=== PATIENT | female | born 1970 | race American Indian/Alaskan Native ===

== ENCOUNTER 2017-02-20 06:14 | Day surgery (SDC) | payer OTHER ==
[2017-02-20] MEDS ORDERED: PEPCID PO NR ×2 (07:00→08:00)
[2017-02-20] MEDS ORDERED: NACL 0.9% 1000 ML 1,000 ML IV SCH (07:00)
[2017-02-20] MEDS ORDERED: MORPHINE IV PRN (07:53)
[2017-02-20] MEDS ORDERED: ZOFRAN IV PRN (07:53)
--- NOTE | 2017-02-20 07:53 | Anesthesia Day of Surgery ---
Anesthesia Day of Surgery - Day of Surgery Patient Examined: Yes Patient is NPO: Yes Beta Blockers: No Papa's Test: N/A
--- NOTE | 2017-02-20 07:59 | Anesthesia Consultation ---
Anesthesia Consult and Med Hx Date of service: 02/20/17 - Airway Anesthetic Teeth Evaluation: Good ROM Head & Neck: Adequate Mental/Hyoid Distance: Adequate Mallampati Class: Class III Intubation Access Assessment: Possibly Difficult - Pulmonary Exam CTA: Yes - Cardiac Exam Cardiac Exam: RRR - Pre-Operative Health Status ASA Pre-Surgery Classification: ASA3 Proposed Anesthetic Plan: General, MAC - Pulmonary Hx Smoking: No Hx Asthma: No - Cardiovascular System Hx Hypertension: No - Central Nervous System Hx Seizures: No Hx Psychiatric Problems: No - Endocrine Hx Insulin Dependent Diabetes: No Hx Non-Insulin Dependent Diabetes: No - Other Systems Hx Alcohol Use: Yes (OCCAS) Hx Substance Use: No Hx Cancer: No Hx Obesity: Yes (morbid, BMI > 40)
[2017-02-20] MEDS ORDERED: ANCEF/STERILE WATER 2 GM/20 ML IV NR (08:00)
[2017-02-20] MEDS ORDERED: XYLOCAINE 1% 20 mL ONE ×2 (08:14→12:08)
--- NOTE | 2017-02-20 09:41 | Procedure Note ---
Date of procedure: 02/20/17 Pre-op diagnosis: rt.breast lesion Post-op diagnosis: same Procedure: needle loc Findings: n/a Anesthesia: local Surgeon: AYLEEN CARLSON Estimated blood loss: none Pathology: none Specimen disposition: other Condition: stable (surgery)
--- NOTE | 2017-02-20 09:42 | Mammography Report ---
Right breast needle localization: Patient presents with a biopsy clip in the superolateral breast. A lateral approach was utilized using mammographic grid technique. The skin was cleansed and 1% lidocaine used for local anesthesia. A 7.5 cm Servin needle was introduced with its position confirmed by mammography. A wire was introduced with removal of the needle and followup mammographic confirmation of location. No complications are encountered.
[2017-02-20] MEDS ORDERED: MARCAINE 0.25% INFILTRATI ONE ×2 (12:08→12:25)
[2017-02-20] MEDS ORDERED: XYLOCAINE 1% 20 mL INFILTRATI ONE (12:25)
--- NOTE | 2017-02-20 13:15 | Mammography Report ---
Operative surgical specimen: Single tissue specimen from the right breast is submitted which includes the localizing wire and targeted clip.
--- NOTE | 2017-02-20 13:35 | Short Stay Summary ---
Short Stay Documentation Date of service: 02/20/17 - History H&P: obtained from office - Allergies and Medications Current Medications: Allergies No Known Allergies Allergy (Verified 02/14/17 15:48) Home Medications Medication Instructions Recorded Confirmed Last Taken Type Fluconazole [Diflucan TAB] 150 mg PO ONCE #1 tablet 02/20/17 Unknown Rx HYDROcodone/APAP 5-325 [[place] 1 each PO Q6HR PRN #30 tablet 02/20/17 Unknown Rx 5/325] Ibuprofen [Ibuprofen Ib] 400 mg PO QDAY 02/20/17 02/20/17 02/19/17 21:00 History Active Medications Sodium Chloride (Nacl 0.9% 1000 Ml) 1,000 mls @ 75 mls/hr IV DIRECT TANISHA Last Admin: 02/20/17 09:12 Dose: 75 mls/hr - Brief post op/procedure progress note Date of procedure: 02/20/17 Pre-op diagnosis: Right breast ADH Post-op diagnosis: same Procedure: Right needle localization excisional biopsy Anesthesia: GETA Findings: Wire and clip present within radiograph specimen Surgeon: LELAND ALLISON Estimated blood loss: other (50 cc) Pathology: list (right needle localization excisional biopsy) Specimen disposition: to lab Condition: stable - Disposition Condition at discharge: Good Disposition: DC- TO HOME OR SELFCARE Short Stay Discharge Plan Activity: other (no heavy lifting) Diet: regular Wound: other (keep incision clean and dry; may shower in 24 hours; no baths, pools or lakes; do not rub or scrub incision) Follow up with: REBECA MCKEON MD [Primary Care Provider] - 7 Days LELAND ALLISON MD [Staff Physician] - 7 Days Prescriptions: Fluconazole [Diflucan TAB] 150 mg PO ONCE #1 tablet HYDROcodone/APAP 5-325 [[place] 5/325] 1 each PO Q6HR PRN #30 tablet PRN Reason: Pain
--- NOTE | 2017-02-20 13:43 | Operative Report ---
Operative Report Operative Report: Date of Service: February 20, 2017 Preoperative diagnosis: Right breast ADH of the upper outer quadrant Postoperative diagnosis: Same Procedure: Right breast needle localization excisional biopsy of upper outer quadrant Surgeon: Gayatri Hood MD Anesthesia: General Findings: Wire and clip present within radiograph specimen Complications: None EBL: 50 cc Disposition: PACU in good condition Indications for operative procedure: This is a 46-year-old lady with recent right breast needle core biopsy with findings of ADH. Recommendations were to proceed with an excisional biopsy to rule out malignancy. Patient wished to proceed with the above procedure. Procedure in detail: Radiology placed wire to localize area of concern. The patient was taken to the operating room and she was laid supine. General anesthesia was administered. The right breast was prepped and draped in the normal sterile operative fashion. The wire was identified. Timeout was performed. A lateral upper outer quadrant incision was made with 15 blade and dissection taken down to the subcutaneous tissues. The wire was removed from the lateral skin. First began raising of the superior flap followed by raising of the inferior flap, then medial flap and lateral flap. Area of concern was appropriately removed with the aid of the Bovie cautery. The wire was not encountered. Radiograph specimen with clip and wire present. Hemostasis was obtained. The deep breast tissues were approximated and close using an interrupted 3-0 Vicryl and subcutaneous tissues were approximated and closed using interrupted 3-0 Vicryl. The skin brought together and closed using a running 4-0 Monocryl followed by skin affix. She tolerated surgery very well and was awaken from anesthesia without any complications and transported to PACU in good condition.
[2017-02-20] MEDS ORDERED: DILAUDID ONE (13:50)
--- NOTE | 2017-02-20 14:05 | Post Anesthesia Evaluation ---
- Post Anesthesia Evaluation Patient Participated: Yes Airway Patent: Yes Stable Respiratory Function: Yes Temp > 96.8F: Yes Pain Manageable: Yes Adequeate Hydration: Yes Anesthesia Complications: No
[2017-02-20] MEDS ORDERED: REGLAN IV PRN (14:36)
[2017-02-20 14:50] VITALS: BP 136/87
[2017-02-20] MEDS ORDERED: NORCO 5/325 PO PRN (14:55)
== END 2017-02-20 15:35 | disposition home or self-care (01) ==
LOC: OR 06:14
PROVIDERS: ATTEND Surgery
DX: N60.11 Diffuse cystic mastopathy of right breast (principal)
CPT/HCPCS: 19101; 19281; 76098; 88307; J1170; J2765